=== PATIENT | female | born 1955 | race Two or more races ===

== ENCOUNTER → 2018-07-19 | Outpatient (CLI) | payer OTHER ==
[2018-07-19 10:31] LABS: CHOLESTEROL 142.29 mg/dL (0-200); TRIGLYCERIDES 55 mg/dL (<150)
[2018-07-19 10:41] LABS: DIRECT LDL 63 mg/dL (<100)
== END ==
LOC: OD 09:31
DX: I10 Essential (primary) hypertension (principal)
CPT/HCPCS: 36415; 80061; 83036; 84443